=== PATIENT | female | born 1975 | race Two or more races ===

== ENCOUNTER 2023-08-13 10:44 | Emergency (ER) | payer OTHER ==
[~2023-08-13] VITALS: Ht 162.6 cm; Wt 68.0 kg
[2023-08-13] MEDS ORDERED: NEURONTIN600 M1 (11:01)
[2023-08-13] MEDS ORDERED: SULINDAC200 MG (11:01)
[2023-08-13] MEDS ORDERED: KETOROLAC TROMETHAMINE 60 MG VIAL IM STA (11:33)
[2023-08-13 12:31] LABS: HEMATOCRIT 44.2 % (36.0-45.00); HEMOGLOBIN 14.8 g/dL (12.0-15.00); MEAN CELL VOLUME 83.9 fL (80.00-100.00); MEAN CORPUSCULAR HGB CONC 33.4 g/dl (32.0-36.0); PLATELET COUNT 273 K/uL (150-450); RED BLOOD COUNT 5.27 M/uL (4.00-6.00); RED CELL DISTRIBUTION WIDTH 13.7 % (11.5-14.5)
[2023-08-13 13:02] LABS: CALCIUM 9.2 mg/dL (8.5-10.1); CREATININE SERUM 0.81 mg/dL (0.55-1.02); GFR 75.79; POTASSIUM 3.87 mEq/L (3.5-5.1)
== END 2023-08-13 14:15 | disposition home or self-care (01) ==
LOC: ER 10:45
PROVIDERS: General Practice
DX: F41.9 Anxiety disorder, unspecified (principal); R07.89 Other chest pain